=== PATIENT | female | born 1970 | race African-American/Black ===

== ENCOUNTER → 2016-11-30 | Day surgery (SDC) | payer OTHER ==
[~2016-11-30] VITALS: Ht 160 cm; Wt 55.8 kg
[~2016-11-30] MED LIST: CRESTOR10 M1 PO; [UNRECOGNIZED DRUG - OTHER] PO
--- NOTE | 2016-11-30 15:58 | Operative Report ---
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 Anesthesia: block Operative/Procedure Note Note: Effie has had shoulder surgery twice on this side she has progressed with range of motion etc. however she still has pain with horizontal adduction and with external rotation in abduction against resistance she's points to a very specific area of the posterior aspect of the shoulder she's here for surgical exploration and treatment Procedure the patient was brought to the operating room placed on the table in the beachchair positional problems were padded care was taken with the neck sterile prep and draped for Betadine solution old portals were opened bony landmarks were marked Getting into the posterior portal following findings were noted the subscapularis was intact there was pronounced chondromalacia of the posterior superior and posterior equatorial humeral head grade 3 there was blowout of the posterior capsule undersurface of the rotator cuff anteriorly looked intact posteriorly it was difficult to see because there was a large amount of scar and bursal looking tissue in this area this was carefully debrided we still did not see the tear Moving into the anterior portal with our viewing scope we could now see that the posterior capsule was blown out and the posterior capsule labral complex was degenerative and frayed Posterior capsulorrhaphy Using the multipolar electrocoagulator was first treated the posterior capsule and then the capsule labral complex we debrided here and removed some excessive scar tissue but then tightened up the posterior capsule directly to the capsule labral complex edge. Humeral head chondroplasty/Coblation Again working from posteriorly using the anterior portal for viewing we now treated the humeral head stabilizing fibers where this could be done and using abrasion chondroplasty conservatively as possible where it was impossible. Rotator cuff repair We now moved into the subacromial space and placed an 18-gauge spinal needle through the area where Monika had indicated her maximum pain and were tenderness was also were pain was felt with forced external rotation after debriding carefully here we found ourselves looking right through the rotator cuff tear into the joint this was a tear in the teres minor were both from her prior tears which were completely healed and shiny smooth. We used a unfw-do-caht technique utilizing the Arthrex suture lasso 90 passer and #2 FiberWire the posterior cuff in this area watertight We looked at the rest of the shoulder or biceps tenodesis was fine her decompression was fine her a septoplasty was fine We removed the instruments closed portals with Monocryl dressing was applied to return to recovery he will be discharged home with shoulder sheet and Percocet Dr. Clark will be following up with her in [facility] next week Findings were explained to Sandra and she understands activity etc. going forward Bhargav Matthews M.D. Findings: Tear of the teres minor chondromalacia and capsular blowout posterior Discharge Disposition: Same Day Admissions
== END ==
LOC: STS 01:31
DX: M75.112 Incomplete rotator cuff tear or rupture of left shoulder, not specified as traumatic (principal); M94.212 Chondromalacia, left shoulder; M24.512 Contracture, left shoulder; M25.512 Pain in left shoulder; E78.00 Pure hypercholesterolemia, unspecified
CPT/HCPCS: 81025; J0131; J0171; J0690; J2250

== ENCOUNTER 2016-12-04 11:16 | Emergency (ER) | payer OTHER ==
[~2016-12-04] VITALS: Ht 160 cm; Wt 56.2 kg
[2016-12-04 11:20] VITALS: BP 114/79
--- NOTE | 2016-12-04 11:57 | ED GENERAL ADULT ---
History of Present Illness General Chief Complaint: General Adult Stated Complaint: SENT IN BY FOR US Source: patient, old records Exam Limitations: no limitations Vital Signs & Intake/Output Vital Signs & Intake/Output Vital Signs Date Time Temp Pulse Resp B/P B/P Pulse O2 O2 Flow FiO2 Mean Ox Delivery Rate 12/04 1200 99 Room Air 12/04 1120 97.7 88 20 114/79 97 Room Air Allergies Coded Allergies: No Known Allergies (12/04/16) Reconcile Medications [MICRO GYNON] 1 TAB PO DAILY CONTROL (Reported) Triage Note: PT C/O LEFT LEG PAIN FROM THE CALF DOWN, UNABLE TO PUT PRESSURE ON LEG. RECENT SHOULDER SURGERY ON 12/01. PT TO R/O DVT Triage Nurses Notes Reviewed? yes Onset: Gradual Duration: day(s): (2) Timing: no prior history Injury Environment: home Severity: moderate Severity Numbers: 8 Modifying Factors: Improves With: immobilization. Worsens With: other (WALKING). : No Patient currently breastfeeds: No HPI: Patient is a 46-year-old female presenting to the emergency department with chief complaint of left calf pain worsening over the past 2 days. She recently had arthroscopic surgery of the left shoulder 3 days ago and was doing well. She reports that 2 days ago she developed this left calf pain.Is worse with ambulation. Pain is currently moderate. Denies taking anything to help with pain. She does report intermittent numbness and tingling in the left calf. Neither any chest pain or palpitations or shortness of breath. She does take control. She was not put on any anticoagulation around the surgery. She flew here from [facility], [place] to have the surgery done. Denies any nausea or vomiting. Denies any strenuous activity or history of injury to that leg in the past. (ALICIA GOODRICH) Past History Travel History Traveled to [facility] past 21 day No Medical History Any Pertinent Medical History? see below for history Neurological: NONE EENT: NONE Cardiovascular: NONE Respiratory: NONE Gastrointestinal: NONE Hepatic: NONE Renal: NONE Musculoskeletal: NONE Psychiatric: NONE Endocrine: NONE Blood Disorders: NONE Cancer(s): NONE Surgical History Surgical History: left shoulder surgery Psychosocial History What is your primary language Italian Tobacco Use: Never used ETOH Use: denies use Illicit Drug Use: denies illicit drug use Family History Hx Contributory? No (ALICIA GOODRICH) Review of Systems Review of Systems Constitutional: Reports: no symptoms. Comments Review of systems: See HPI, All other systems negative. Constitutional, no chills fever or weight loss HEENT: No visual changes no sore throat no congestion Cardiovascular: No chest pain ,palpitation , orthopnea or ankle swelling Skin, no jaundice no rashes Respiratory: No dyspnea cough sputum or hemoptysis GI: No nausea no vomiting : No dysuria No hematuria Muscle skeletal: no back pain, no neck pain, Neurologic:no confusion Psych: No stress anxiety or depression,. Heme/endocrine: No bruising no bleeding no polyuria or polydipsia Immunology: No splenectomy or history of AIDS (ALICIA GOODRICH) Physical Exam Physical Exam General Appearance: well developed/nourished, no apparent distress, alert, awake , comfortable Comments: Well-developed well-nourished person in no acute distress HEENT: Pupils equally round and reactive to light and accommodation. Nose is atraumatic. Neck: Normal inspection Back: Nontender Cardiovascular: Regular rate and rhythms no murmurs rubs or gallops, normal JVP Respiratory: Chest nontender. No respiratory distress.breath sounds clear to auscultation bilaterally Extremity: No edema, left calf pain to palpation. Positive Homans sign on the left lower extremity. PEDAL pulses are 2+ bilaterally. Pain over the left calf with left foot plantar flexion. Full range of motion of right lower extremity without pain or difficulty. Able to flex and extend the left knee without difficulty or pain. Neuro: Alert oriented x3, motor sensory normal Skin: No appreciable rash on exposed skin, skin is warm and dry. Psych: Mood and affect is normal, memory and judgment is normal. Core Measures ACS in differential dx? No CVA/TIA Diagnosis: No Severe Sepsis Present: No Septic Shock Present: No (ALICIA GOODRICH) Progress Differential Diagnoses I considered the following diagnoses in my evaluation of the patient: DVT, muscle strain, contusion, dehydration, cramping Plan of Care: Orders Procedure Date/time Status US-EXT BILAT VENOUS DOPPLER 12/04 1121 Active Diagnostic Imaging: Viewed by Me: Ultrasound. Discussed w/RAD: Ultrasound. Radiology Impression: PATIENT: RAMONA CROW PRESENT AGE: 46 PATIENT ACCOUNT NO: [id number] : 71 LOCATION: [facility] ORDERING PHYSICIAN: ALICIA ROMO SERVICE DATE: 12/04/16 EXAM TYPE: US - US-EXT BILAT VENOUS DOPPLER EXAMINATION: US TRIPLEX LOWER EXTREMITY, BILATERAL CLINICAL INFORMATION: This is a 46-year-old female who is postop from left shoulder surgery. The patient has left calf pain. Possible deep vein thrombosis. COMPARISON: None TECHNIQUE: Color-flow triplex imaging with spectral analysis and compression Doppler were performed on the bilateral lower extremities. FINDINGS: Respiratory variation, normal compression and augmented flow are noted throughout the bilateral lower extremities. The visualized common femoral vein, superficial femoral vein, profunda femoral vein, popliteal vein and midcalf peroneal and posterior tibial venous segments show no evidence of deep venous thrombosis. There is no Montenegro's cyst. IMPRESSION: Normal triplex scan without evidence of deep venous thrombosis involving the bilateral lower extremities. DICTATED BY: JANE CRAWLEY MD DATE/TIME DICTATED:12/04/161158 [employer] OPERATOR:VAHE DATE/TIME TRANSCRIBED:12/04/161158 CONFIDENTIAL, DO NOT COPY WITHOUT APPROPRIATE AUTHORIZATION. <Electronically signed in Other Vendor System> SIGNED BY: JANE CRAWLEY MD 12/04/16 1204 Initial ED EKG: none Comments: 12/04/2016 12:10:02 PM patient declined pain medication on arrival. She was informed of negative bilateral Doppler studies. Likely muscle grams. Educated on increasing fluids. If symptoms persist next 7-10 days she should be reevaluated when she gets home. Patient cleared for discharge. (ALICIA GOODRICH) Departure Departure Time of Disposition: 1207 Disposition: HOME OR SELF CARE Condition: Stable Clinical Impression Primary Impression: Leg pain Qualifiers: Laterality: left Qualified Code: M79.605 - Pain in left leg Referrals: UNKNOWN (PCP/Family) Additional Instructions: Follow-up with your primary care physician call to make an appointment. Rest and elevate her left lower extremity. Take Motrin and Tylenol [id number] as directed to help with pain. Increase fluid intake. Return for worsening symptoms or concerns. Departure Forms: Customer Survey General Discharge Information (ALICIA GOODRICH) PA/NREMT Co-Sign Statement Statement: ED Attending supervision documentation- [] I saw and evaluated the patient. I have also reviewed all the pertinent lab results and diagnostic results. I agree with the findings and the plan of care as documented in the PA's/NREMT's documentation. [x] I have reviewed the ED Record and agree with the PA's/NREMT's documentation. [] Additions or exceptions (if any) to the PAs/NREMT's note and plan are summarized below: [] (RO BEVERLY DO) Critical Care Note Critical Care Note Critical Care Time: non-applicable (RANJIT ROMO,ALICIA)
--- NOTE | 2016-12-04 12:04 | ULTRASOUND REPORT ---
EXAMINATION: US TRIPLEX LOWER EXTREMITY, BILATERAL CLINICAL INFORMATION: This is a 46-year-old female who is postop from left shoulder surgery. The patient has left calf pain. Possible deep vein thrombosis. COMPARISON: None TECHNIQUE: Color-flow triplex imaging with spectral analysis and compression Doppler were performed on the bilateral lower extremities. FINDINGS: Respiratory variation, normal compression and augmented flow are noted throughout the bilateral lower extremities. The visualized common femoral vein, superficial femoral vein, profunda femoral vein, popliteal vein and midcalf peroneal and posterior tibial venous segments show no evidence of deep venous thrombosis. There is no Montenegro's cyst. IMPRESSION: Normal triplex scan without evidence of deep venous thrombosis involving the bilateral lower extremities.
== END 2016-12-04 12:15 ==
LOC: ERH 11:16
DX: M79.605 Pain in left leg (principal)
CPT/HCPCS: 93970